=== PATIENT | female | born 1975 | race American Indian/Alaskan Native ===

== ENCOUNTER 2017-11-01 12:58 | Emergency (ER) | payer SELFPAY ==
[2017-11-01 14:30] LABS: Basophils % (Auto) 0.2 % (0.0-1.8); Eosinophils # (Auto) 0.1 K/mm3 (0.0-0.4); Eosinophils % (Auto) 1.5 % (0.0-4.3); Hematocrit 37.9 % (30.3-42.9); Hemoglobin 12.2 gm/dl (10.1-14.3); Lymphocytes # (Auto) 2.2 K/mm3 (1.2-5.4); Lymphocytes % (Auto) 29.3 % (13.4-35.0); Mean Corpuscular HGB Conc 32 % (30-34); Mean Corpuscular Hemoglobin 27 pg (28-32); Mean Corpuscular Volume 85 fl (79-97); Monocytes # (Auto) 0.6 K/mm3 (0.0-0.8); Monocytes % (Auto) 7.5 % (0.0-7.3); Platelet Count 278 K/mm3 (140-440); Red Blood Count 4.46 M/mm3 (3.65-5.03); Red Cell Distribution Width 16.7 % (13.2-15.2)
[2017-11-01] MEDS ORDERED: TORADOL IV ONE (14:33)
[2017-11-01] MEDS ORDERED: REGLAN PO ONE (14:33)
--- NOTE | 2017-11-01 14:33 | Emergency Department Report ---
ED General Adult HPI - General Chief complaint: Neuro Symptoms/Deficit Stated complaint: HANDS/LEGS NUMB Time Seen by Provider: 11/01/17 13:56 Source: patient Mode of arrival: Ambulatory Limitations: No Limitations - History of Present Illness Initial comments: Patient states she is here for evaluation of a headache she has had similar headaches in the past she denies sudden onset of exertional headache she is here for evaluation of a headache she did start to breathe fast and then got tingling in her fingers and her toe but that is improved now she denied stiff neck fever -: Gradual Location: head Severity scale (0 -10): 0 Associated Symptoms: headaches. denies: confusion, chest pain, cough, diaphoresis, fever/chills, loss of appetite, malaise, nausea/vomiting, rash, seizure, shortness of breath, syncope, weakness - Related Data Previous Rx's Medication Instructions Recorded Last Taken Type HYDROcodone/ACETAMINOPHEN [[place] 1 each PO Q4-6H PRN #14 tablet 11/01/17 Unknown Rx 5-325 Tablet] Metoclopramide [Reglan] 10 mg PO TID PRN #15 tab 11/01/17 Unknown Rx Allergies Allergy/AdvReac Type Severity Reaction Status Date / Time No Known Allergies Allergy Verified 03/14/15 15:21 ED Review of Systems ROS: Stated complaint: HANDS/LEGS NUMB Other details as noted in HPI Comment: All other systems reviewed and negative Constitutional: denies: diaphoresis, fever, malaise, weakness Respiratory: denies: shortness of breath, SOB with exertion, SOB at rest, stridor, wheezing Cardiovascular: denies: chest pain, palpitations, dyspnea on exertion, orthopnea , edema, syncope, paroxysmal nocturnal dyspnea Gastrointestinal: nausea. denies: abdominal pain, vomiting, diarrhea, constipation, hematemesis, melena, hematochezia Genitourinary: denies: frequency, hematuria, discharge Musculoskeletal: denies: joint swelling, arthralgia Neurological: headache. denies: weakness, numbness, paresthesias, confusion, abnormal gait, vertigo ED Past Medical Hx - Past Medical History Hx Asthma: Yes - Surgical History Additional Surgical History: , TUBILIGATION - Social History Smoking Status: Never Smoker Substance Use Type: None - Medications Home Medications: Home Medications Medication Instructions Recorded Confirmed Last Taken Type HYDROcodone/ACETAMINOPHEN [[place] 1 each PO Q4-6H PRN #14 tablet 11/01/17 Unknown Rx 5-325 Tablet] Metoclopramide [Reglan] 10 mg PO TID PRN #15 tab 11/01/17 Unknown Rx ED Physical Exam - General Limitations: No Limitations General appearance: alert, anxious - Head Head exam: Present: atraumatic, normocephalic - Eye Eye exam: Present: PERRL, EOMI - ENT ENT exam: Present: normal exam, normal orophraynx - Neck Neck exam: Present: normal inspection. Absent: tenderness, meningismus - Respiratory Respiratory exam: Present: normal lung sounds bilaterally. Absent: respiratory distress, wheezes, rales, rhonchi, stridor - Cardiovascular Cardiovascular Exam: Present: regular rate, normal rhythm - GI/Abdominal GI/Abdominal exam: Present: soft. Absent: distended, tenderness, guarding, rebound, rigid, mass, bruit, pulsatile mass - Extremities Exam Extremities exam: Present: normal inspection, normal capillary refill. Absent: full ROM, tenderness, pedal edema, joint swelling, calf tenderness - Back Exam Back exam: Absent: tenderness, CVA tenderness (R), CVA tenderness (L), muscle spasm, paraspinal tenderness, vertebral tenderness - Neurological Exam Neurological exam: Present: alert, oriented X3, CN II-XII intact. Absent: motor sensory deficit ED Course Vital Signs 11/01/17 13:13 Temperature 98 F Pulse Rate 72 Respiratory 18 Rate Blood Pressure 141/96 O2 Sat by Pulse 100 Oximetry ED Medical Decision Making - Lab Data Result diagrams: 11/01/17 14:08 11/01/17 14:08 - Medical Decision Making Laboratory studies unremarkable CT head no acute process patient is now refusing her pain medicine we will discharge her for further evaluation of her regular doctor for headaches symptoms seem consistent with a nonemergent headache no evidence that any acute emergent headache is present at this time she has a nonfocal neuro exam normal head CT history is not suspicious for any type of vascular catastrophe that would require any further workup she is to follow up and should follow-up the tingling is likely due to hyperventilation and has resolved no stiff neck no fever Critical care attestation.: If time is entered above; I have spent that time in minutes in the direct care of this critically ill patient, excluding procedure time. ED Disposition Clinical Impression: Headache Disposition: DC-01 TO HOME OR SELFCARE Is pt being admited?: No Condition: Stable Instructions: Acute Headache (ED) Additional Instructions: Return immediately if new or alarming symptoms or call 911 see her regular doctor or the doctor listed Prescriptions: HYDROcodone/ACETAMINOPHEN [[place] 5-325 Tablet] 1 each PO Q4-6H PRN #14 tablet PRN Reason: Headache Metoclopramide [Reglan] 10 mg PO TID PRN #15 tab PRN Reason: Nausea Referrals: PRIMARY CARE, [Primary Care Provider] - 3-5 Days UMANG ECKERT MD [Staff Physician] - 3-5 Days Time of Disposition: 18:33
[2017-11-01 14:40] LABS: INR 0.95 (0.87-1.13)
[2017-11-01 14:41] LABS: Partial Thromboplastin Time 29.8 Sec. (24.2-36.6); Thrombin Time 16.3 Sec. (15.1-19.6)
[2017-11-01 14:43] LABS: Alanine Aminotransferase 6 units/L (7-56); Albumin 3.6 g/dL (3.9-5); BUN/Creatinine Ratio 10; Blood Urea Nitrogen 6 mg/dL (7-17); Calcium 8.3 mg/dL (8.4-10.2); Hemolysis Index 7
--- NOTE | 2017-11-01 15:13 | Cat Scan Report ---
FINAL REPORT EXAM: CT HEAD/BRAIN WO CON HISTORY: Stroke symptoms TECHNIQUE: CT of the head was performed. No intravenous contrast was administered. PRIORS: None. FINDINGS: There is no evidence of intracranial hemorrhage. There is no edema, mass effect or midline shift. There are no abnormal extra-axial fluid collections. The ventricles are appropriate for brain volume. There is no skull fracture seen. The visualized aspects of the sinuses are clear. IMPRESSION: There is no acute intracranial abnormality identified.
[2017-11-01] MEDS ORDERED: REGLAN ONE (18:54)
[2017-11-01] MEDS ORDERED: TORADOL ONE (18:54)
[2017-11-01] MEDS ORDERED: TORADOL IM ONE (19:02)
[2017-11-01 19:04] VITALS: BP 139/85
== END 2017-11-01 19:05 | disposition home or self-care (01) ==
LOC: ED 12:58
DX: R51 Headache (principal)
CPT/HCPCS: 36415; 70450; 80053; 84484; 84702; 85025; 85610; 85670; 85730; 96372; 99284; J1885